=== PATIENT | male | born 1980 | race Caucasian/White ===

== ENCOUNTER 2018-09-08 22:12 | Inpatient (IN) | payer BC, OTHER ==
[~2018-09-08] VITALS: Ht 177.8 cm; Wt 82.6 kg
[2018-09-08] MEDS ORDERED: NS IV 1000 ML 1,000 ML ONE (22:32)
--- NOTE | 2018-09-08 22:35 | NUR ---
Unable to complete safety assessment, because patient is unresponsive
--- NOTE | 2018-09-08 23:06 | ED Psychosocial ---
General Chief Complaint: Overdose Stated Complaint: OVERDOSE Nursing Triage Note: [facility] brought by [facility] with overdose. 18 gauge IV started in left AC. Pt is lethargic and unable to answer questions. Found xanax paper that script was filled yesterday, of 90 .5mg of xanax. Family found him at home around 2044 unresponsive and started CPR, but when [facility] arrived the patient had a pulse. 2115 [facility] gave pt narcan and did not respond. Pt was 96% on non-rebreather. Source: EMS Exam Limitations: clinical condition, intoxication History of Present Illness Date Seen by Provider: Sep 08, 2018 Time Seen by Provider: 22:20 Initial Comments This is a 33 y/o m who presents to the ED after presumed overdose. Pt was last seen approx 2 hrs prior to being found "unresponsive" in his car. Bystanders started CPR but on EMS evaluation pt had good respirations/pulse. He had a prescription bag of Xanax 0.5mg #90 fill date yesterday. No bottle was found on scene. Pt told EMS that he only took #8 tablets. Pt intermittently verbal with repetitive stimuli. He has slurred speech. He is inconsistent when stating how many Xanax he took and also reports ETOH and hydrocodone. He denies any allergies. Allergies and Home Medications Patient Home Medication List Home Medication List Reviewed: Yes Review of Systems Constitutional: no symptoms reported (Unable to obtain 2/2 acuity. ) Past Iazxzkg-Dcaszy-Ilyowh Hx Patient Social History Alcohol Use: Occasionally Uses Recreational Drug Use: No (unknown unresponsive) Smoking Status: Unknown if Ever Smoked Recent Foreign Travel: No Contact w/Someone Who Travel: No Recent Infectious Disease Expo: No Recent Hopitalizations: No (unknown unresponsive) Seasonal Allergies Seasonal Allergies: No (unknown unresponsive) Past Medical History Surgeries: No (unknown unresponsive) Respiratory: No (unknown unresponsive) Cardiac: No (unknown unresponsive) Neurological: No (unknown unresponsive) Genitourinary: No (unknown unresponsive) Gastrointestinal: No (unknown unresponsive) Musculoskeletal: No (unknown unresponsive) Endocrine: No (unknown unresponsive) HEENT: No (unknown unresponsive) Cancer: No (unknown unresponsive) Psychosocial: No (unknown unresponsive) Integumentary: No (unknown unresponsive) Blood Disorders: No (unknown unresponsive) Physical Exam Vital Signs - First Documented 09/08/18 09/08/18 22:35 22:49 Temp 97.4 Pulse 83 Resp 14 B/P (MAP) 100/47 (64) Pulse Ox 94 O2 Delivery Room Air O2 Flow Rate 3.00 Capillary Refill : Less Than 3 Seconds Height, Weight, BMI Height: 5'10.00" Weight: 180lbs. 0oz. 81.591926zg; BMI Method:Stated General Appearance: other (Sleeping, rouses with repetitive verbal/tactile stimmuli. Able to answer questions for 30-60secs and then falls back asleep. ) HEENT: other (Pupils 6-8mm bilateral and sluggishly reactive ) Neck: non-tender, other (No trauma, trachea midline, no stridor ) Respiratory: chest non-tender, lungs clear, normal breath sounds, no respiratory distress, no accessory muscle use Cardiovascular: regular rate, rhythm, no edema, no JVD, no murmur Peripheral Pulses: 2+ Dorsalis Pedis (R), 2+ Left Dors-Pedis (L), 2+ Radial Pulses (R), 2+ Radial Pulses (L) Gastrointestinal: normal bowel sounds, non tender, soft Extremities: no pedal edema, normal capillary refill, other (Moves all 4 extremities spontaneous. Reactive to pain. Tries to pull out IV in L arm. Not able to follow commands to eval ROM. No obvious trauma to extremities ) Neurologic/Psychiatric: other (Sleeping as above. Rouses with repetitive verbal /tactile stimuli. Slurred speech when talking. Alert to self only. Responds to painful stimuli, Attempting to pull out IV. ) Skin: normal color Progress/Results/Core Measures Results/Orders Lab Results Laboratory Tests Test 09/08/18 22:28 Range/Units My Orders Orders - FRENCH WOLF DO Acetaminophen (09/08/18 22:24) Alcohol (09/08/18 22:24) Cbc And Manual Diff (09/08/18 22:24) Comprehensive Metabolic Panel (09/08/18 22:24) Drug Screen Stat (Urine) (09/08/18 22:24) Salicylate (09/08/18 22:24) Ekg Tracing (09/08/18 22:24) Ns Iv 1000 Ml (Sodium Chloride 0.9%) (09/08/18 22:32) Medications Given in ED Current Medications Medications Dose Ordered Sig/Yazan Route Start Time Stop Time Status Last Admin Dose Admin Sodium Chloride 1,000 ml @ ud STK-MED ONCE .ROUTE 09/08/18 22:32 09/08/18 22:35 DC 09/08/18 22:37 999 MLS/HR Vital Signs/I&O 09/08/18 09/08/18 22:35 22:49 Temp 97.4 Pulse 83 Resp 14 B/P (MAP) 100/47 (64) Pulse Ox 94 99 O2 Delivery Room Air Nasal Cannula O2 Flow Rate 3.00 Blood Pressure Mean: 64 Progress Progress Note : Time: 22:53 Progress Note Exact ingestion unclear. Pt could have taken up to Xanax 0.5 #90. Could also be a polypharmacy ingestion. He is rouseable and protecting his airway. When asleep is requiring 2-3 NC supplemental O2. Will require ICU care for potential acute decompensation. Discussed with Dr. FARRELL polymer materials consultant at [facility] who is agreeable to admission. 1L fluid bolus started in ED. BP systolic has been in 90s-100s. EKG with no acute findings. Unclear if this was an SI attempt. Initial ECG Impression Date: Sep 08, 2018 Initial ECG Impression Time: 22:34 Comment NSR, no significant ST segment changes/T wave changes. Departure Impression Primary Impression: Drug overdose Disposition: ADMITTED INPATIENT Condition: Critical Admissions Decision to Admit/Date: Sep 08, 2018 Time/Decision to Admit Time: 22:53 Departure-Patient Inst. Referrals: NO,LOCAL PHYSICIAN (PCP) Primary Care Physician Patient Instructions: ALCOHOL AND SUBSTANCE ABUSE FRENCH WOLF DO Sep 08, 2018 23:06
--- NOTE | 2018-09-08 23:09 | NUR ---
EMS was paged for transportation to [facility] and en route to ER.
--- NOTE | 2018-09-08 23:18 | NUR ---
Report given to EMS and care has been transferred. EMS has left the ER at this time.
[2018-09-08 23:31] LABS: BENZODIAZEPINES SCREEN URINE POSITIVE (NEGATIVE); CANNABINOID SCREEN, URINE POSITIVE (NEGATIVE); COCAINE SCREEN URINE NEGATIVE (NEGATIVE); OXYCODONE STAT POSITIVE (NEGATIVE); PROPOXYPHENE STAT NEGATIVE (NEGATIVE)
[2018-09-08 23:32] LABS: AMPHETAMINE SCREEN, URINE NEGATIVE (NEGATIVE); BARBITURATE SCREEN URINE NEGATIVE (NEGATIVE); METHADONE STAT NEGATIVE (NEGATIVE); METHAMPHETAMINE SCREEN URINE S NEGATIVE (NEGATIVE); OPIATE SCREEN URINE NEGATIVE (NEGATIVE); TRICYCLIC ANTIDEPRESSANTS SCRE NEGATIVE (NEGATIVE); WHITE BLOOD COUNT 8.2 10^3/uL (4.3-11.0)
[2018-09-08 23:33] LABS: BASOPHILS % (AUTO) 0 % (0-10); EOSINOPHILS # (AUTO) 0.1 10^3/uL (0.0-0.3); EOSINOPHILS % (AUTO) 1 % (0-10); HEMATOCRIT 40 % (40-54); LYMPHOCYTES # (AUTO) 1.4 X 10^3 (1.0-4.0); LYMPHOCYTES % (AUTO) 17 % (12-44); MEAN CORPUSCULAR HEMOGLOBIN 32 PG (25-34); MEAN CORPUSCULAR HGB CONC 35 G/DL (32-36); MEAN CORPUSCULAR VOLUME 92 FL (80-99); MEAN PLATELET VOLUME 9.8 FL (7.4-10.4); MONOCYTES # (AUTO) 0.6 X 10^3 (0.0-1.0); MONOCYTES % (AUTO) 8 % (0-12); NEUTROPHILS # (AUTO) 6.1 X 10^3 (1.8-7.8); PLATELET COUNT 165 10^3/uL (130-400); RED CELL DISTRIBUTION WIDTH 12.6 % (10.0-14.5)
[2018-09-08 23:34] LABS: ATYPICAL LYMPHOCYTES 3 %; BAND NEUTROPHILS 4 %; LYMPHOCYTES % (MANUAL) 16 %; MONOCYTES % (MANUAL) 5 %; NEUTROPHILS % (AUTO) 74 % (42-75); NEUTROPHILS % (MANUAL) 72 %
[2018-09-08 23:35] LABS: ACETAMINOPHEN 29 UG/ML (10-30); ALANINE AMINOTRANSFERASE 24 U/L (0-55); ALBUMIN 4.1 GM/DL (3.2-4.5); BILIRUBIN,TOTAL 0.9 MG/DL (0.1-1.0); BUN/CREATININE RATIO 13; CALCIUM 8.5 MG/DL (8.5-10.1); CARBON DIOXIDE 24 MMOL/L (21-32); CHLORIDE 104 MMOL/L (98-107); CREATININE SERUM 0.96 MG/DL (0.60-1.30); GFR ESTIMATED > 60; GLUCOSE 125 MG/DL (70-105); POTASSIUM 4.5 MMOL/L (3.6-5.0); SALICYLATE < 0.3 MG/DL (5.0-20.0); SODIUM 142 MMOL/L (135-145); TOTAL PROTEIN 6.6 GM/DL (6.4-8.2)
[2018-09-08 23:37] LABS: ALKALINE PHOSPHATASE 51 U/L (40-136)
[2018-09-09] VITALS (50 sets, daily range): BP systolic 80–128; BP diastolic 50–93
[2018-09-09] MEDS ORDERED: NS IV 1000 ML 1,000 ML ONE ×3 (00:15→03:40)
[2018-09-09] MEDS ORDERED: NALOXONE 2 MG/2 ML (NARCAN) SYR ONE (00:17)
[2018-09-09 00:37] LABS: ABG BASE EXCESS 0.2 MMOL/L (-2.5-2.5); ABG OXYGEN SATURATION 100 % (94-100); ABG PCO2 38 MMHG (35-45); ABG PH 7.42 (7.37-7.43); ABG PO2 138 MMHG (79-93)
[2018-09-09 00:39] LABS: ALLENS TEST YES-POS; INSPIRED O2 4; PATIENT TEMP 93.9; VENTILATOR NO
[2018-09-09] MEDS ORDERED: NALOXONE 0.4 MG/ML 1 ML (NARCAN) VIAL ONE ×2 (00:40→00:42)
[2018-09-09] MEDS ORDERED: NS (IVPB) 100 ML ONE (00:42)
[2018-09-09] MEDS ORDERED: NALOXONE INJECTION 0.4 MG in NS (IVPB) 99 ML IV PRN (00:45)
[2018-09-09] MEDS: NALOXONE INJECTION 0.4 MG in NS (IVPB) 99 ML IV SCH ×2 (00:54→02:12)
[2018-09-09] MEDS ORDERED: NALOXONE 2 MG/2 ML (NARCAN) SYR IV ONE (01:00)
[2018-09-09] MEDS ORDERED: NALOXONE 0.4 MG/ML 1 ML (NARCAN) VIAL IV ONE (01:00)
--- NOTE | 2018-09-09 01:00 | NUR ---
0003--Pt to [facility] via EMS, per bedside report, EMS report apneic episodes en route, VSS per report, initial VS charted, see EMR 0010--E-ICU contacted, updated on pt condition, discussion of intubation 11--ER physician to bedside 001--1 mg Narcan administered, see eMAR, NS bolus initiated, EKG obtained 001--Pt's LOC increased at this time, not following commands, but moaning and moving all extremities, orders received for Narcan drip, ER physician left 0020--Rectal thermometer placed r/t 93.9 initial temp, see EMR 0030--ABG obtained, see EMR 0040--E-ICU contacted r/t decreased LOC and Narcan drip not available yet, ordered to push Narcan until drip is started at same rate of drip ordered 0100--Narcan drip infusing, pt unresponsive, snoring respirations
--- NOTE | 2018-09-09 01:16 | ED General ---
General Chief Complaint: Overdose Stated Complaint: OVERDOSE Nursing Triage Note: [facility] with overdose. 18 gauge IV started in left AC. Pt is lethargic and unable to answer questions. Found xanax paper that script was filled yesterday, of 90 .5mg of xanax. Family found him at home around 2044 unresponsive and started CPR, but when [facility] arrived the patient had a pulse. 2115 [facility] gave pt narcan and did not respond. Pt was 96% on non-rebreather. Nursing Sepsis Screen: No Definite Risk Source of Information: EMS, Other (Nursing staff) History of Present Illness Date Seen by Provider: September 09, 2018 Time Seen by Provider: 00:15 Initial Comments I was called to patient's room due to respiratory suppression. Respiratory rate was 7 at the time. Intent was for me to intubate the patient. I discussed the case with Dr. Reynoso, [facility] physician. We elected to try Narcan. Patient was initially unresponsive but responded well to 1 mg of Narcan. He has spontaneous movements and increased his respiratory rate to 20. ST elevation was noted on the monitor. An EKG was obtained which showed no ST elevation. Intubation was avoided for the time being. Allergies and Home Medications Allergies Coded Allergies: No Known Drug Allergies (Unverified , 09/09/18) Patient Home Medication List Home Medication List Reviewed: Yes Review of Systems Review of Systems Constitutional: no symptoms reported Respiratory: see HPI Psychiatric/Neurological: See HPI Past Ctgxfww-Mmvupb-Dybtvh Hx Patient Social History Alcohol Use: Occasionally Uses Recreational Drug Use: No (unknown unresponsive) Smoking Status: Unknown if Ever Smoked Recent Foreign Travel: No Contact w/Someone Who Travel: No Recent Infectious Disease Expo: No Recent Hopitalizations: No (unknown unresponsive) Seasonal Allergies Seasonal Allergies: No (unknown unresponsive) Past Medical History Surgeries: No (unknown unresponsive) Respiratory: No (unknown unresponsive) Cardiac: No (unknown unresponsive) Neurological: No (unknown unresponsive) Genitourinary: No (unknown unresponsive) Gastrointestinal: No (unknown unresponsive) Musculoskeletal: No (unknown unresponsive) Endocrine: No (unknown unresponsive) HEENT: No (unknown unresponsive) Cancer: No (unknown unresponsive) Psychosocial: No (unknown unresponsive) Integumentary: No (unknown unresponsive) Blood Disorders: No (unknown unresponsive) Physical Exam Vital Signs Vital Signs - First Documented 09/08/18 09/08/18 22:35 22:49 Temp 97.4 Pulse 83 Resp 14 B/P (MAP) 100/47 (64) Pulse Ox 94 O2 Delivery Room Air O2 Flow Rate 3.00 Capillary Refill : Less Than 3 Seconds Height, Weight, BMI Height: 5'10.00" Weight: 180lbs. 0oz. 81.499673px; BMI Method:Stated General Appearance: No Apparent Distress, Other (unresponsive) HEENT: Other (subtle abrasion on the central scalp) Neck: Normal Inspection Respiratory: No Respiratory Distress Neurologic/Psychiatric: Other (initially unresponsive. Patient exhibited response to verbal stimuli and exhibited spontaneous movement after treatment with Narcan) Skin: Normal Color, Warm/Dry Progress/Results/Core Measures Suspected Sepsis Recent Fever Within 48 Hours: No Infection Criteria Present: None New/Unexplained Altered Menta: No Sepsis Screen: No Definite Risk SIRS Temperature:93.9 Pulse: 60 Respiratory Rate: 6 Laboratory Tests 09/08/18 22:28: White Blood Count 8.2 Blood Pressure 87 /62 Mean: 70 Laboratory Tests 09/08/18 22:28: Creatinine 0.96, Platelet Count 165, Total Bilirubin 0.9 Results/Orders Lab Results Laboratory Tests Test 09/08/18 22:28 09/09/18 00:30 Range/Units White Blood Count 8.2 4.3-11.0 10^3/uL Red Blood Count 4.36 4.35-5.85 10^6/uL Hemoglobin 14.0 13.3-17.7 G/DL Hematocrit 40 40-54 % Mean Corpuscular Volume 92 80-99 FL Mean Corpuscular Hemoglobin 32 25-34 PG Mean Corpuscular Hemoglobin Concent 35 32-36 G/DL Red Cell Distribution Width 12.6 10.0-14.5 % Platelet Count 165 130-400 10^3/uL Mean Platelet Volume 9.8 7.4-10.4 FL Neutrophils (%) (Auto) 74 42-75 % Lymphocytes (%) (Auto) 17 12-44 % Monocytes (%) (Auto) 8 0-12 % Eosinophils (%) (Auto) 1 0-10 % Basophils (%) (Auto) 0 0-10 % Neutrophils # (Auto) 6.1 1.8-7.8 X 10^3 Lymphocytes # (Auto) 1.4 1.0-4.0 X 10^3 Monocytes # (Auto) 0.6 0.0-1.0 X 10^3 Eosinophils # (Auto) 0.1 0.0-0.3 10^3/uL Basophils # (Auto) 0.0 0.0-0.1 10^3/uL Neutrophils % (Manual) 72 % Lymphocytes % (Manual) 16 % Monocytes % (Manual) 5 % Band Neutrophils 4 % Atypical Lymphocytes 3 % Sodium Level 142 135-145 MMOL/L Potassium Level 4.5 3.6-5.0 MMOL/L Chloride Level 104 98-107 MMOL/L Carbon Dioxide Level 24 21-32 MMOL/L Anion Gap 14 5-14 MMOL/L Blood Urea Nitrogen 12 7-18 MG/DL Creatinine 0.96 0.60-1.30 MG/DL Estimat Glomerular Filtration Rate > 60 BUN/Creatinine Ratio 13 Glucose Level 125 H 70-105 MG/DL Calcium Level 8.5 8.5-10.1 MG/DL Corrected Calcium 8.4 L 8.5-10.1 MG/DL Total Bilirubin 0.9 0.1-1.0 MG/DL Aspartate Amino Transf (AST/SGOT) 22 5-34 U/L Alanine Aminotransferase (ALT/SGPT) 24 0-55 U/L Alkaline Phosphatase 51 40-136 U/L Total Protein 6.6 6.4-8.2 GM/DL Albumin 4.1 3.2-4.5 GM/DL Salicylates Level < 0.3 L 5.0-20.0 MG/DL Urine Opiates Screen NEGATIVE NEGATIVE Urine Oxycodone Screen POSITIVE H NEGATIVE Urine Methadone Screen NEGATIVE NEGATIVE Urine Propoxyphene Screen NEGATIVE NEGATIVE Acetaminophen Level 29 10-30 UG/ML Urine Barbiturates Screen NEGATIVE NEGATIVE Ur Tricyclic Antidepressants Screen NEGATIVE NEGATIVE Urine Phencyclidine Screen NEGATIVE NEGATIVE Urine Amphetamines Screen NEGATIVE NEGATIVE Urine Methamphetamines Screen NEGATIVE NEGATIVE Urine Benzodiazepines Screen POSITIVE H NEGATIVE Urine Cocaine Screen NEGATIVE NEGATIVE Urine Cannabinoids Screen POSITIVE H NEGATIVE Serum Alcohol 10 <10 MG/DL Blood Gas Puncture Site LT RAD Blood Gas Patient Temperature 93.9 Arterial Blood pH 7.42 7.37-7.43 Arterial Blood Partial Pressure CO2 38 35-45 MMHG Arterial Blood Partial Pressure O2 138 H 79-93 MMHG Arterial Blood HCO3 25 23-27 MMOL/L Arterial Blood Total CO2 26.0 21.0-31.0 MMOL/L Arterial Blood Oxygen Saturation 100 94-100 % Arterial Blood Base Excess 0.2 -2.5-2.5 MMOL/L Torito Test YES-POS Blood Gas Ventilator Setting NO Blood Gas Inspired Oxygen 4 Medications Given in ED Current Medications Medications Dose Ordered Sig/Yazan Route Start Time Stop Time Status Last Admin Dose Admin Sodium Chloride 1,000 ml @ ud STK-MED ONCE .ROUTE 09/08/18 22:32 09/08/18 22:35 DC 09/08/18 22:37 999 MLS/HR Vital Signs/I&O 09/08/18 09/08/18 09/08/18 09/09/18 22:35 22:49 23:24 00:06 Temp 97.4 97.0 93.9 Pulse 83 78 60 Resp 14 13 6 B/P (MAP) 100/47 (64) 97/57 (70) 87/62 (70) Pulse Ox 94 99 100 99 O2 Delivery Room Air Nasal Cannula Room Air Nasal Cannula O2 Flow Rate 3.00 3.00 4.00 09/09/18 00:35 O2 Delivery Nasal Cannula O2 Flow Rate 2.00 Capillary Refill : Less Than 3 Seconds Blood Pressure Mean: 70 Progress Note : Progress Note Patient improved with Narcan. Care was turned over to Dr. Reynoso. ECG Initial ECG Impression Date: September 09, 2018 Initial ECG Impression Time: 00:20 Initial ECG Rate: 64 Initial ECG Rhythm: Normal Sinus Comment Sinus rhythm with no ST elevation or depression. LVH noted by automated read. No significant abnormal intervals. Departure Impression Primary Impression: Drug overdose Qualified Codes: T50.904A - Poisoning by unspecified drugs, medicaments and biological substances, undetermined, initial encounter Additional Impression: Respiratory depression Disposition: 09 ADMITTED INPATIENT Condition: Critical Admissions Decision to Admit/Date: Sep 08, 2018 Time/Decision to Admit Time: 22:53 Departure-Patient Inst. Referrals: NO,LOCAL PHYSICIAN (PCP) Primary Care Physician Patient Instructions: ALCOHOL AND SUBSTANCE ABUSE ALESHA ARORA MD September 09, 2018 01:16
--- NOTE | 2018-09-09 01:16 | NUR ---
Poison Control notified of pt's condition, Poison Control will follow up, protocols for ingestion received via fax at this time.
[2018-09-09] MEDS ORDERED: RT-ALBUTEROL SULF 2.5 MG/3 ML PRE-MIX VIAL ONE (02:13)
[2018-09-09 02:15] LABS: ABG BASE EXCESS -0.7 MMOL/L (-2.5-2.5); ABG OXYGEN SATURATION 95 % (94-100); ABG PCO2 59 MMHG (35-45); ABG PO2 74 MMHG (79-93); ABG TCO2 27.8 MMOL/L (21.0-31.0)
[2018-09-09] MEDS ORDERED: RT-ALBUTEROL SULF 2.5 MG/3 ML PRE-MIX VIAL INH PRN (02:15)
[2018-09-09 02:17] LABS: ABG PH 7.25 (7.37-7.43); INSPIRED O2 2L NC; VENTILATOR NO
[2018-09-09 02:18] LABS: PATIENT TEMP 96.1
[2018-09-09] MEDS ORDERED: PROPOFOL DRIP (ICU) 100 ML IV ONE (02:52)
[2018-09-09] MEDS ORDERED: PROPOFOL DRIP (ICU) 100 ML IV SCH (03:00)
[2018-09-09] MEDS ORDERED: SUCCINYLCHOLINE INJ 100 MG/5 ML SYR INJ ONE ×2 (03:00→12:32)
[2018-09-09] MEDS ORDERED: ETOMIDATE IV SOLN 20 MG/10 ML VIAL IV ONE ×2 (03:00→12:32)
--- NOTE | 2018-09-09 03:00 | NUR ---
0145--Pt continues to be unresponsive, ETC02 steadily climbing, in 60s at this time 0150--Oral airway attempted, pt continues to snore, nasal trumpet initiated, no gag reflex noted at this time, pt continues with unresponsiveness to deep painful stimuli, respirations 4-6 per minute 0210--ABG obtained 0218--Critical pH level received 0220--E-ICU contacted, updated on pt's condition, orders for intubation received, Concert [employer] notified, ER physician called 0230--ER physician to bedside 0245--RSI medications given per ER physician, see EMAR 0247--Successful intubation at this time, 7.5 ET tube, 23@teeth, color change, bilateral breath sounds auscultated 0250--OG placed, CXR obtained, placement confirmed 0252--Narcan drip d/c at this time
--- NOTE | 2018-09-09 03:07 | ED CPR ---
HPI-CPR General Chief Complaint: Overdose Stated Complaint: OVERDOSE Nursing Triage Note: [facility] with overdose. 18 gauge IV started in left AC. Pt is lethargic and unable to answer questions. Found xanax paper that script was filled yesterday, of 90 .5mg of xanax. Family found him at home around 2044 unresponsive and started CPR, but when [facility] arrived the patient had a pulse. 2115 [facility] gave pt narcan and did not respond. Pt was 96% on non-rebreather. Sepsis Screen: No Definite Risk Source of Information: Patient, Old Records Exam Limitations: No Limitations History of Present Illness Date Seen by Provider: September 09, 2018 Time Seen by Provider: 02:35 Initial Comments I was called to patient's room for intubation. Patient was again unresponsive despite a Narcan drip. Patient's respirations were obstructive. Nasal trumpet was not sufficient to protect his airway. His respirations were being supplemented by BVM. ABG was worsening. Allergies and Home Medications Allergies Coded Allergies: No Known Drug Allergies (Unverified , 09/09/18) Home Medications Alprazolam 0.5 Mg Tablet, 0.5 MG PO TID PRN for ANXIETY, (Reported) Patient Home Medication List Home Medication List Reviewed: Yes Review of Systems Review of Systems Constitutional: no symptoms reported Respiratory: See HPI Psychiatric/Neurological: See HPI Past Fbxxnod-Ivcidq-Cwamqa Hx Patient Social History Alcohol Use: Occasionally Uses Recreational Drug Use: No (unknown unresponsive) Smoking Status: Unknown if Ever Smoked Recent Foreign Travel: No Contact w/Someone Who Travel: No Recent Infectious Disease Expo: No Recent Hopitalizations: No (unknown unresponsive) Seasonal Allergies Seasonal Allergies: No (unknown unresponsive) Past Medical History Surgeries: No (unknown unresponsive) Respiratory: No (unknown unresponsive) Cardiac: No (unknown unresponsive) Neurological: No (unknown unresponsive) Genitourinary: No (unknown unresponsive) Gastrointestinal: No (unknown unresponsive) Musculoskeletal: No (unknown unresponsive) Endocrine: No (unknown unresponsive) HEENT: No (unknown unresponsive) Cancer: No (unknown unresponsive) Psychosocial: No (unknown unresponsive) Integumentary: No (unknown unresponsive) Blood Disorders: No (unknown unresponsive) Physical Exam Vital Signs Vital Signs - First Documented 09/08/18 09/08/18 22:35 22:49 Temp 97.4 Pulse 83 Resp 14 B/P (MAP) 100/47 (64) Pulse Ox 94 O2 Delivery Room Air O2 Flow Rate 3.00 Capillary Refill : Less Than 3 Seconds Height, Weight, BMI Height: 5'10.00" Weight: 158lbs. 0.0oz. 71.629321hy; 22.7 BMI Method:Stated General Appearance: WD/WN, Other (unresponsive) HEENT: Other (minor abrasion on the top of the scalp) Neck: Normal Inspection Respiratory: Lungs Clear, Normal Breath Sounds, No Accessory Muscle Use, No Respiratory Distress, Other (obstructive respirations) Cardiovascular: Regular Rate, Rhythm, No Edema, No Murmur Gastrointestinal: Soft; No Distended Extremity: Normal Inspection, No Pedal Edema Neurologic/Psychiatric: Other (unresponsive) Skin: Normal Color, Diaphoresis Procedures/Interventions Reason for Intubation: respiratory depression, obstructive airway Date of ETT Placement: September 09, 2018 Time of ETT Placement: 246 Intubation Method: orotracheal Tube Size: 8.00 Medications: Etomidate, Propofol, Succinylcholine Positive End Tide CO2: Yes Breath Sounds after Intubation: bilateral-equal Intubation Complications: no complications Post Intubation Xray: Yes ET tube in good position. No pneumothorax. Intubation performed by Dr. Bernabe Care turned over to: Dr. Reynoso. Progress/Results/Core Measures Results/Orders Lab Results Laboratory Tests Test 09/08/18 22:28 Range/Units White Blood Count 8.2 4.3-11.0 10^3/uL Red Blood Count 4.36 4.35-5.85 10^6/uL Hemoglobin 14.0 13.3-17.7 G/DL Hematocrit 40 40-54 % Mean Corpuscular Volume 92 80-99 FL Mean Corpuscular Hemoglobin 32 25-34 PG Mean Corpuscular Hemoglobin Concent 35 32-36 G/DL Red Cell Distribution Width 12.6 10.0-14.5 % Platelet Count 165 130-400 10^3/uL Mean Platelet Volume 9.8 7.4-10.4 FL Neutrophils (%) (Auto) 74 42-75 % Lymphocytes (%) (Auto) 17 12-44 % Monocytes (%) (Auto) 8 0-12 % Eosinophils (%) (Auto) 1 0-10 % Basophils (%) (Auto) 0 0-10 % Neutrophils # (Auto) 6.1 1.8-7.8 X 10^3 Lymphocytes # (Auto) 1.4 1.0-4.0 X 10^3 Monocytes # (Auto) 0.6 0.0-1.0 X 10^3 Eosinophils # (Auto) 0.1 0.0-0.3 10^3/uL Basophils # (Auto) 0.0 0.0-0.1 10^3/uL Neutrophils % (Manual) 72 % Lymphocytes % (Manual) 16 % Monocytes % (Manual) 5 % Band Neutrophils 4 % Atypical Lymphocytes 3 % Sodium Level 142 135-145 MMOL/L Potassium Level 4.5 3.6-5.0 MMOL/L Chloride Level 104 98-107 MMOL/L Carbon Dioxide Level 24 21-32 MMOL/L Anion Gap 14 5-14 MMOL/L Blood Urea Nitrogen 12 7-18 MG/DL Creatinine 0.96 0.60-1.30 MG/DL Estimat Glomerular Filtration Rate > 60 BUN/Creatinine Ratio 13 Glucose Level 125 H 70-105 MG/DL Calcium Level 8.5 8.5-10.1 MG/DL Corrected Calcium 8.4 L 8.5-10.1 MG/DL Total Bilirubin 0.9 0.1-1.0 MG/DL Aspartate Amino Transf (AST/SGOT) 22 5-34 U/L Alanine Aminotransferase (ALT/SGPT) 24 0-55 U/L Alkaline Phosphatase 51 40-136 U/L Total Protein 6.6 6.4-8.2 GM/DL Albumin 4.1 3.2-4.5 GM/DL Salicylates Level < 0.3 L 5.0-20.0 MG/DL Urine Opiates Screen NEGATIVE NEGATIVE Urine Oxycodone Screen POSITIVE H NEGATIVE Urine Methadone Screen NEGATIVE NEGATIVE Urine Propoxyphene Screen NEGATIVE NEGATIVE Acetaminophen Level 29 10-30 UG/ML Urine Barbiturates Screen NEGATIVE NEGATIVE Ur Tricyclic Antidepressants Screen NEGATIVE NEGATIVE Urine Phencyclidine Screen NEGATIVE NEGATIVE Urine Amphetamines Screen NEGATIVE NEGATIVE Urine Methamphetamines Screen NEGATIVE NEGATIVE Urine Benzodiazepines Screen POSITIVE H NEGATIVE Urine Cocaine Screen NEGATIVE NEGATIVE Urine Cannabinoids Screen POSITIVE H NEGATIVE Serum Alcohol 10 <10 MG/DL Medications Given in ED Vital Signs/I&O 09/08/18 09/08/18 22:35 22:49 Temp 97.4 Pulse 83 Resp 14 B/P (MAP) 100/47 (64) Pulse Ox 94 99 O2 Delivery Room Air Nasal Cannula O2 Flow Rate 3.00 Blood Pressure Mean: 71 Progress Progress Note : Progress Note Patient was successfully intubated without complications. I have also ordered CT of the head and cervical spine as patient's history surrounding events prior to arrival in [place] are uncertain and there is evidence of a subtle abrasion on his scalp. Nursing staff will have results reviewed by Dr. Reynoso. Departure Impression Primary Impression: Drug overdose Qualified Codes: T50.904A - Poisoning by unspecified drugs, medicaments and biological substances, undetermined, initial encounter Additional Impression: Respiratory depression Disposition: ADMITTED INPATIENT Condition: Critical Admissions Decision to Admit/Date: Sep 08, 2018 Time/Decision to Admit Time: 22:53 Departure-Patient Inst. Referrals: NO,LOCAL PHYSICIAN (PCP) Primary Care Physician Patient Instructions: ALCOHOL AND SUBSTANCE ABUSE ALESHA BERNABE MD September 09, 2018 03:07
[2018-09-09 03:11] LABS: BASOPHILS % (AUTO) 0 % (0-10); EOSINOPHILS % (AUTO) 0 % (0-10); HEMATOCRIT 38 % (40-54); HEMOGLOBIN 13.2 G/DL (13.3-17.7); LYMPHOCYTES # (AUTO) 2.6 X 10^3 (1.0-4.0); LYMPHOCYTES % (AUTO) 28 % (12-44); MEAN CORPUSCULAR HEMOGLOBIN 32 PG (25-34); MEAN CORPUSCULAR HGB CONC 35 G/DL (32-36); MEAN CORPUSCULAR VOLUME 91 FL (80-99); MEAN PLATELET VOLUME 9.3 FL (7.4-10.4); MONOCYTES # (AUTO) 0.7 X 10^3 (0.0-1.0); MONOCYTES % (AUTO) 8 % (0-12); NEUTROPHILS % (AUTO) 64 % (42-75); PLATELET COUNT 188 10^3/uL (130-400); RED CELL DISTRIBUTION WIDTH 12.5 % (10.0-14.5); WHITE BLOOD COUNT 9.3 10^3/uL (4.3-11.0)
[2018-09-09 03:33] LABS: ACETAMINOPHEN 25 UG/ML (10-30); ALANINE AMINOTRANSFERASE 22 U/L (0-55); ALBUMIN 3.5 GM/DL (3.2-4.5); ALKALINE PHOSPHATASE 44 U/L (40-136); BILIRUBIN,TOTAL 0.9 MG/DL (0.1-1.0); BUN/CREATININE RATIO 11; CALCIUM 8.1 MG/DL (8.5-10.1); CARBON DIOXIDE 18 MMOL/L (21-32); CHLORIDE 113 MMOL/L (98-107); CREATININE SERUM 0.81 MG/DL (0.60-1.30); GFR ESTIMATED > 60; GLUCOSE 101 MG/DL (70-105); MAGNESIUM 2.1 MG/DL (1.8-2.4); PHOSPHORUS 5.1 MG/DL (2.3-4.7); POTASSIUM 4.7 MMOL/L (3.6-5.0); SODIUM 142 MMOL/L (135-145); TOTAL PROTEIN 5.5 GM/DL (6.4-8.2); TRIGLYCERIDES 63 MG/DL (<150)
[2018-09-09] MEDS: NS IV 1000 ML 1,000 ML IV SCH ×3 (03:40→17:58)
[2018-09-09 04:22] LABS: ABG BASE EXCESS -1.9 MMOL/L (-2.5-2.5); ABG OXYGEN SATURATION 100 % (94-100); ABG PCO2 30 MMHG (35-45); ABG PH 7.46 (7.37-7.43); ABG PO2 141 MMHG (79-93); ABG TCO2 22.5 MMOL/L (21.0-31.0)
[2018-09-09 04:23] LABS: ALLENS TEST YES-POS; INSPIRED O2 40%; PATIENT TEMP 96.9; VENTILATOR YES
[2018-09-09] MEDS ORDERED: NS IV 1000 ML 1,000 ML IV SCH (04:30)
[2018-09-09] MEDS ORDERED: fentaNYL INJECTION 100 MCG/2 ML AMP IV PRN (04:30)
--- NOTE | 2018-09-09 04:49 | NUR ---
0427--Pt to CT with RT, Manager Fund RN, and restorative care technician, with monitors. 2789--Pt returned without complications
--- NOTE | 2018-09-09 05:11 | Pulmonary Consultation ---
History of Present Illness History of Present Illness Date of Consultation 09/09/18 05:04 Time Seen by Provider: 05:04 Date of Admission History of Present Illness 33yo presented to ED via EMS after family called EMS secondary to unresponsiveness. Upon EMS arrival pt's family was doing chest compression however EMS palpated a pulse. Upon arrival patient did respond to Narcan however pt became unresponsive again and was not able to control his airway. Allergies and Home Medications Allergies Coded Allergies: No Known Drug Allergies (Unverified , 09/09/18) Home Medications No Active Prescriptions or Reported Meds Past Vzulsdc-Gzwqmx-Apwafy Hx Patient Social History Alcohol Use: Occasionally Uses Recreational Drug Use: No (unknown unresponsive) Smoking Status: Unknown if Ever Smoked Recent Foreign Travel: No Contact w/Someone Who Travel: No Recent Infectious Disease Expo: No Recent Hopitalizations: No (unknown unresponsive) Seasonal Allergies Seasonal Allergies: No (unknown unresponsive) Past Medical History Surgeries: No (unknown unresponsive) Respiratory: No (unknown unresponsive) Cardiac: No (unknown unresponsive) Neurological: No (unknown unresponsive) Genitourinary: No (unknown unresponsive) Gastrointestinal: No (unknown unresponsive) Musculoskeletal: No (unknown unresponsive) Endocrine: No (unknown unresponsive) HEENT: No (unknown unresponsive) Cancer: No (unknown unresponsive) Psychosocial: No (unknown unresponsive) Integumentary: No (unknown unresponsive) Blood Disorders: No (unknown unresponsive) Review of Systems Time Seen by Provider: 11:39 Sepsis Event Evaluation Height, Weight, BMI Height: 5'10.00" Weight: 158lbs. 0.0oz. 71.343917hx; 22.7 BMI Method:Stated Exam Exam Vital Signs Date Time Temp Pulse Resp B/P (MAP) Pulse Ox O2 Delivery O2 Flow Rate FiO2 09/09/18 04:00 98.2 75 16 104/75 (85) 100 Mechanical Ventilator 40.00 09/09/18 03:30 98.0 78 15 99/65 (76) 99 Mechanical Ventilator 40.00 09/09/18 03:01 Mechanical Ventilator 60.00 09/09/18 03:00 97.8 102 50 119/81 (94) 100 Mechanical Ventilator 60.00 09/09/18 02:47 90 16 100 60 09/09/18 02:40 97.2 86 11 119/81 (94) 99 Mechanical Ventilator 60.00 09/09/18 02:17 98 Nasal Cannula 2.00 09/09/18 02:00 95.8 86 9 107/53 (71) 90 Nasal Cannula 2.00 09/09/18 01:49 87 94 09/09/18 01:49 93 Nasal Cannula 2.00 09/09/18 01:45 95.2 92 113/50 (71) 98 Nasal Cannula 2.00 09/09/18 01:30 94.8 81 10 101/57 (72) 97 Nasal Cannula 2.00 09/09/18 01:15 94.5 75 10 95/55 (68) 95 Nasal Cannula 2.00 09/09/18 01:00 94.1 64 13 90/55 (67) 97 Nasal Cannula 2.00 09/09/18 01:00 64 09/09/18 00:45 94.3 63 11 89/61 (70) 98 Nasal Cannula 2.00 09/09/18 00:35 Nasal Cannula 2.00 09/09/18 00:30 68 9 106/78 (87) 95 Nasal Cannula 4.00 09/09/18 00:15 61 13 80/63 (69) 100 Nasal Cannula 4.00 09/09/18 00:10 74 09/09/18 00:06 93.9 60 6 87/62 (70) 99 Nasal Cannula 4.00 09/08/18 23:24 97.0 78 13 97/57 (70) 100 Room Air 3.00 09/08/18 22:49 99 Nasal Cannula 3.00 09/08/18 22:35 97.4 83 14 100/47 (64) 94 Room Air I & O 09/09/18 06:59 Intake Total 100 ml Output Total 675 ml Balance -575 ml Height & Weight Height: 5'10.00" Weight: 158lbs. 0.0oz. 71.107295ud; 22.7 BMI Method:Stated General Appearance: WD/WN, Other (unresponsive) HEENT: Other (minor abrasion on the top of the scalp) Neck: Normal Inspection Respiratory: Lungs Clear, Normal Breath Sounds, No Accessory Muscle Use, No Respiratory Distress, Other (obstructive respirations) Cardiovascular: Regular Rate, Rhythm, No Edema, No Murmur Capillary Refill: Less Than 3 Seconds Peripheral Pulses: 2+ Dorsalis Pedis (R), 2+ Left Dors-Pedis (L), 2+ Radial Pulses (R), 2+ Radial Pulses (L) Gastrointestinal: normal bowel sounds, non tender, soft Extremity: Normal Inspection, No Pedal Edema Neurologic/Psychiatric: Other (unresponsive) Skin: Normal Color, Diaphoresis Results Lab Laboratory Tests 09/08/18 22:28 09/09/18 03:03 Assessment/Plan Assessment/Plan Acute respiratory failure -Continue ventilator therapy -D/C sedation and will allow pt to wake up on vent Multisubstance OD narcotics and benzo's -Will follow mucomyst PO protocol per poison control Marijuana use -education DARRIN PATEL DO September 09, 2018 05:11
[2018-09-09] MEDS: RT-ALBUTEROL SULF 2.5 MG/3 ML PRE-MIX VIAL INH SCH ×2 (06:03→10:33)
[2018-09-09] MEDS: MAGNESIUM 1 GM/100 ML IVPB 100 ML IV SCH (06:11)
[2018-09-09] MEDS: POTASSIUM CL 10MEQ/50ML IVPB 50 ML IV SCH (06:11)
[2018-09-09] MEDS: KCL 20 MEQ TAB (K-DUR) PO SCH (06:12)
--- NOTE | 2018-09-09 06:12 | Diagnostic Imaging Report ---
PROCEDURE: CT head and CT cervical spine without contrast. TECHNIQUE: Multiple contiguous axial images were obtained through the brain and cervical spine without the use of intravenous contrast. Sagittal and coronal reformations through the cervical spine were then performed. Auto Exposure Controls were utilized during the CT exam to meet ALARA standards for radiation dose reduction. INDICATION: 33-year-old male with benzodiazepine overdose on a ventilator. COMPARISON: None CT head without contrast: FINDINGS: Midline structures are not displaced. Lateral, third and fourth ventricles are normal in size, shape and anatomic position. There is no mass, mass effect, hydrocephalus or hemorrhage. Khan-white differentiation is normal. There is no sulcal effacement. There are no abnormal extra-axial fluid collections or hemorrhage. Basilar cisterns appear normal. Sinuses, orbits and mastoid air cells are normal. Bone windows show no calvarial changes. IMPRESSION: Unremarkable nonenhanced CT brain. CT cervical spine with reconstructions: FINDINGS: Axial images and sagittal and coronal reconstructions of the cervical spine show no evidence of new or healing fractures, bony destruction or remodeling. The cervical vertebral bodies appear well aligned, vertebral body heights appear well-maintained. There is some mild cervical spondylosis. Prevertebral soft tissue as well as a predental space and the relationship of the dens to lateral mass of C1 is normal. Patient is intubated. Lung apices are clear. Superior mediastinum is unremarkable. Parapharyngeal and paraspinous soft tissues are normal. IMPRESSION: 1. Patient is intubated. 2. Mild cervical spondylosis of mid cervical spine otherwise no evidence of acute fracture or subluxation seen. Agree with [facility] report. Dictated by: Dictated on workstation # [id number]
[2018-09-09] MEDS ORDERED: D5W IV ONE ×3 (06:30→11:30)
[2018-09-09] MEDS ORDERED: ACETYLCYSTEINE IV ONE ×3 (06:30→11:30)
--- NOTE | 2018-09-09 07:57 | Diagnostic Imaging Report ---
INDICATION: Support apparatus placement FINDINGS: ET tube tip mid trachea. OG catheter in the stomach. No focal pulmonary consolidation. No effusion or pneumothorax. IMPRESSION: Support apparatus projects in good alignment, the lungs are clear. Dictated by: Dictated on workstation # [id number]
[2018-09-09] MEDS ORDERED: PANTOPRAZOLE 40 MG (PROTONIX) VIAL IV SCH (08:00)
[2018-09-09] MEDS: CHLORHEXIDINE 0.12% SOLN 15 ML (PERIDEX) UDC PO SCH ×2 (10:30→21:00)
[2018-09-09] MEDS ORDERED: ALPR0.5T7 PO (10:31)
--- NOTE | 2018-09-09 10:48 | NUR ---
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 I CALLED BENEDICT KAUFMAN, WHO PRESCRIBED THE XANAX, AT [facility] IN [facility] PHONE [phone]. THEY FAXED OVER THE RECORDS THEY HAVE ON FILE FOR THE PATIENT. IN THAT PAPER WORK IS A MED LIST THAT HAS THE FOLLOWING MEDS LISTED: PERCOCET 10-325 Q4H KETOCONAZOLE CREAM BID ALPRAZOLAM .25MG Q8H OMEPRAZOLE 40MG DAILY ALBUTEROL INHALER PRN ACCORDING TO [employer] THE PERCOCET HAS NOT BEEN FILLED SINE 03-17-18 FOR #42 AND THE XANAX THAT WAS RECENTLY FILLED WAS 0.5MG NOT THE 0.25MG SO IT IS UNCLEAR HOW UP TO DATE THIS LIST IT. THERE IS NO DATE ON IT EITHER. I DID NOT PUT THE OTHER MEDICATIONS ON THE MED REC AT THIS TIME SINCE I AM NOT ABLE TO VERIFY WHEN THEY WERE FILLED LAST AND IT IS UNCLEAR IF THE PATIENT IS TAKING THEM.
--- NOTE | 2018-09-09 10:53 | History & Physical-Hospitalist ---
History of Present Illness HPI/Chief Complaint CC: Overdose with VDRF HPI: This is a 38-year-old white male who is brought to the ER from paramedics after the family called due to unresponsiveness. Family was performing chest compressions at the time of arrival of the paramedics and they assessed the patient have a pulse that he was no longer able to maintain his airway so he was intubated in the field. Currently patient is stable now vent dependent and Dr. Atkinson has been consulted. No family at the bedside for other details. Source: patient Exam Limitations: no limitations Date Seen 09/09/18 Time Seen by a Provider: 09:45 Attending Physician Pedro Lozano MD PCP No,Local Physician Referring Physician Date of Admission Sep 08, 2018 at 22:59 Home Medications & Allergies Home Medications Reviewed patient Home Medication Reconciliation performed by pharmacy medication reconciliations robotic technician and/or nursing. Patients Allergies have been reviewed. Allergies Allergies Coded Allergies No Known Drug Allergies (Unverified09/09/18) Past Scifixl-Dwgesf-Sgwljg Hx Past Med/Social Hx: Reviewed Nursing Past Med/Soc Hx, Reviewed and Corrections made Patient Social History Alcohol Use: Occasionally Uses Recreational Drug Use: No (unknown unresponsive) Smoking Status: Unknown if Ever Smoked Recent Foreign Travel: No Contact w/other who traveled: No Recent Hopitalizations: No (unknown unresponsive) Recent Infectious Disease Expo: No Seasonal Allergies Seasonal Allergies: No (unknown unresponsive) Past Medical History History of Blood Disorders: No (unknown unresponsive) Review of Systems Constitutional: see HPI (unable to ascertain) Physical Exam Physical Exam Vital Signs Vital Signs - First Documented 09/08/18 09/08/18 09/09/18 22:35 22:49 02:47 Temp 97.4 Pulse 83 Resp 14 B/P (MAP) 100/47 (64) Pulse Ox 94 O2 Delivery Room Air O2 Flow Rate 3.00 FiO2 60 Capillary Refill : Less Than 3 Seconds Height, Weight, BMI Height: 5'10.00" Weight: 158lbs. 8.0oz. 71.139047gt; 22.7 BMI Method:Stated General Appearance: No Apparent Distress, Other (sedated on vent) Respiratory: Lungs Clear, Normal Breath Sounds, Other (on vent) Cardiovascular: Regular Rate, Rhythm, No Edema Neurologic/Psychiatric: Other (sedated) Results Results/Procedures Labs Laboratory Tests 09/08/18 22:28 09/09/18 03:03 Patient resulted labs reviewed. Assessment/Plan Admission Diagnosis Assessment: Overdose Respiratory failure VDRF Plan: Maintain vent Appreciate Dr Atkinson Admission Status: Inpatient Order (span 2 midnights) Reason for Inpatient Admission: VDRF will require 3 days Diagnosis/Problems Diagnosis/Problems (1) Ventilator dependence Status: Acute (2) Respiratory failure Status: Acute Qualifiers: Chronicity: unspecified Respiratory failure complication: unspecified whether with hypoxia or hypercapnia Qualified Codes: J96.90 - Respiratory failure, unspecified, unspecified whether with hypoxia or hypercapnia (3) Drug overdose Status: Acute Qualifiers: Encounter type: initial encounter Injury intent: undetermined intent Qualified Codes: T50.904A - Poisoning by unspecified drugs, medicaments and biological substances, undetermined, initial encounter ELAN COUGHLIN DO September 09, 2018 10:53
--- NOTE | 2018-09-09 13:11 | NUR ---
DR. PATEL CALLED TO ROOM AT APPROX 1300, PATIENT THRASHING AROUND, SITTING UP IN BED, ET MOUTHED TO FATHER HELP ME. DR. PATEL ASSESSED PATIENT ET MADE DECISION TO HAVE PT EXTUBATED. RT CALLED TO ROOM, PATIENT EXTUBATED AT 1305, RESTRAINTS REMOVED AT THIS TIME. PATIENT SUCTIONED ET O2 APPLED VIA NASAL CANNULA 2L/
[2018-09-09] MEDS ORDERED: KETOROLAC 15 MG/ML VIAL IVP PRN (13:30)
[2018-09-09] MEDS ORDERED: KETOROLAC 15 MG/ML VIAL ONE (13:38)
[2018-09-09] MEDS: RT-ALBUTEROL/IPRATROPIUM 3 ML (DUONEB) VIAL INH SCH ×3 (14:41→22:28)
[2018-09-09] MEDS ORDERED: RT-ALBUTEROL/IPRATROPIUM 3 ML (DUONEB) VIAL INH PRN (16:00)
[2018-09-09] MEDS ORDERED: ONDANSETRON 4 MG/2 ML (SDV) Z0FRAN IVP PRN (18:00)
[2018-09-09] MEDS ORDERED: PIPERACILLIN/TAZOBACTAM (BULK) 4.5 GM in NS (IVPB) 100 ML IV NR (18:15)
[2018-09-10] VITALS (17 sets, daily range): BP systolic 92–165; BP diastolic 58–94
[2018-09-10] MEDS: NS IV 1000 ML 1,000 ML IV SCH ×3 (00:28→14:24)
[2018-09-10] MEDS: PIPERACILLIN/TAZOBACTAM (BULK) 4.5 GM in NS (IVPB) 100 ML IV SCH ×3 (00:30→16:32)
[2018-09-10] MEDS: RT-ALBUTEROL/IPRATROPIUM 3 ML (DUONEB) VIAL INH SCH ×4 (02:32→16:37)
[2018-09-10 03:50] LABS: BASOPHILS % (AUTO) 0 % (0-10); EOSINOPHILS % (AUTO) 0 % (0-10); HEMATOCRIT 35 % (40-54); HEMOGLOBIN 12.1 G/DL (13.3-17.7); LYMPHOCYTES # (AUTO) 2.2 X 10^3 (1.0-4.0); LYMPHOCYTES % (AUTO) 20 % (12-44); MEAN CORPUSCULAR HEMOGLOBIN 31 PG (25-34); MEAN CORPUSCULAR HGB CONC 35 G/DL (32-36); MEAN CORPUSCULAR VOLUME 91 FL (80-99); MEAN PLATELET VOLUME 9.7 FL (7.4-10.4); MONOCYTES # (AUTO) 0.7 X 10^3 (0.0-1.0); MONOCYTES % (AUTO) 6 % (0-12); NEUTROPHILS # (AUTO) 8.2 X 10^3 (1.8-7.8); NEUTROPHILS % (AUTO) 74 % (42-75); PLATELET COUNT 141 10^3/uL (130-400); RED CELL DISTRIBUTION WIDTH 12.7 % (10.0-14.5); WHITE BLOOD COUNT 11.2 10^3/uL (4.3-11.0)
[2018-09-10 04:10] LABS: BUN/CREATININE RATIO 8; CALCIUM 8.3 MG/DL (8.5-10.1); CARBON DIOXIDE 20 MMOL/L (21-32); CHLORIDE 111 MMOL/L (98-107); CREATININE SERUM 0.71 MG/DL (0.60-1.30); GFR ESTIMATED > 60; GLUCOSE 106 MG/DL (70-105); MAGNESIUM 1.5 MG/DL (1.8-2.4); PHOSPHORUS 2.2 MG/DL (2.3-4.7); POTASSIUM 3.6 MMOL/L (3.6-5.0); SODIUM 141 MMOL/L (135-145)
[2018-09-10 04:54] LABS: INR 1.3 (0.8-1.4); PROTHROMBIN TIME PATIENT 16.5 SEC (12.2-14.7)
[2018-09-10] MEDS: MAGNESIUM 1 GM/100 ML IVPB 100 ML IV SCH ×3 (05:14→06:22)
[2018-09-10] MEDS: POTASSIUM CL 10MEQ/50ML IVPB 50 ML IV SCH ×3 (05:14→06:22)
[2018-09-10] MEDS: KCL 20 MEQ TAB (K-DUR) PO SCH (05:14)
--- NOTE | 2018-09-10 06:06 | Pulmonary Progress Note ---
Subjective Time Seen by a Provider: 06:40 Subjective/Events-last exam Pt is doing well off vent. Sepsis Event Evaluation Height, Weight, BMI Height: 5'10.00" Weight: 163lbs. 0.0oz. 73.297787do; 22.7 BMI Method:Stated Focused Exam Lactate Level 09/09/18 03:03: Lactic Acid Level 1.75 Exam Exam Vital Signs Date Time Temp Pulse Resp B/P (MAP) Pulse Ox O2 Delivery O2 Flow Rate FiO2 09/10/18 05:00 74 20 92/63 (73) 93 Nasal Cannula 2.00 09/10/18 04:27 99.0 09/10/18 04:00 61 17 104/59 (74) 93 Nasal Cannula 2.00 09/10/18 04:00 98 Room Air 09/10/18 03:00 80 13 114/58 (76) 97 Nasal Cannula 2.00 09/10/18 02:32 98 Room Air 09/10/18 02:00 74 14 108/69 (82) 94 Nasal Cannula 2.00 09/10/18 01:00 82 17 96/62 (73) 93 Nasal Cannula 2.00 09/10/18 01:00 76 09/10/18 00:00 73 18 105/61 (76) 95 Nasal Cannula 2.00 09/10/18 00:00 98 Room Air 09/09/18 23:30 99.5 09/09/18 23:00 72 16 94/58 (70) 95 Nasal Cannula 2.00 09/09/18 22:28 95 Room Air 09/09/18 22:00 77 18 96/58 (71) 94 Nasal Cannula 2.00 09/09/18 21:00 82 16 98/62 (74) 94 Nasal Cannula 2.00 09/09/18 20:00 98 Room Air 09/09/18 20:00 82 19 111/71 (84) 87 Nasal Cannula 2.00 09/09/18 20:00 98.5 09/09/18 19:00 82 17 125/73 (90) Nasal Cannula 2.00 09/09/18 19:00 98 09/09/18 19:00 99.5 09/09/18 18:48 91 Room Air 09/09/18 18:00 89 21 112/71 (85) Nasal Cannula 2.00 09/09/18 17:00 109 30 117/59 (78) 93 Nasal Cannula 2.00 09/09/18 16:38 100.2 09/09/18 16:00 111 21 99/54 (69) 94 Nasal Cannula 2.00 09/09/18 16:00 94 Room Air 09/09/18 15:00 102.0 09/09/18 15:00 101 21 125/77 (93) 98 Nasal Cannula 2.00 09/09/18 14:41 94 Nasal Cannula 2.00 09/09/18 14:12 98.6 09/09/18 14:00 109 25 128/86 (100) 92 Nasal Cannula 2.00 09/09/18 13:42 100.1 09/09/18 13:28 100.1 09/09/18 13:21 107 09/09/18 13:05 Nasal Cannula 2.00 09/09/18 13:05 94 Nasal Cannula 2.00 09/09/18 13:00 97 20 104/89 (94) 93 Mechanical Ventilator 25.00 09/09/18 12:00 100.2 92 14 122/71 (88) 95 Mechanical Ventilator 25.00 09/09/18 11:48 97 Mechanical Ventilator 25.00 09/09/18 11:00 99.6 90 15 126/71 (89) 95 Mechanical Ventilator 25.00 09/09/18 10:33 77 16 98 25 09/09/18 10:00 98.9 78 14 110/62 (78) 97 Mechanical Ventilator 25.00 09/09/18 09:00 98.6 80 13 110/73 (85) 95 Mechanical Ventilator 25.00 09/09/18 08:59 77 14 95 25 09/09/18 08:00 97 Mechanical Ventilator 25.00 09/09/18 08:00 98.4 76 13 105/66 (79) 97 Mechanical Ventilator 25.00 09/09/18 07:29 98.4 80 14 107/64 (78) 97 Mechanical Ventilator 25.00 09/09/18 07:02 80 09/09/18 07:00 98.8 80 14 105/62 (76) 96 Mechanical Ventilator 25.00 09/09/18 06:45 98.8 74 13 103/64 (77) 97 Mechanical Ventilator 25.00 09/09/18 06:30 98.6 74 14 107/66 (80) 98 Mechanical Ventilator 25.00 09/09/18 06:15 98.6 73 13 102/64 (77) 98 Mechanical Ventilator 25.00 09/09/18 06:03 75 14 98 25 I & O 09/10/18 07:00 Intake Total 2012 ml Output Total 2410 ml Balance -398 ml Height & Weight Height: 5'10.00" Weight: 163lbs. 0.0oz. 73.965240xc; 22.7 BMI Method:Stated General Appearance: No Apparent Distress, Thin HEENT: PERRL/EOMI, Normal ENT Inspection, Pharynx Normal, Other (minor abrasion on the top of the scalp) Neck: Normal Inspection Respiratory: Lungs Clear, Normal Breath Sounds, No Accessory Muscle Use, No Respiratory Distress, Decreased Breath Sounds Cardiovascular: Regular Rate, Rhythm, No Edema Capillary Refill: Less Than 3 Seconds Peripheral Pulses: 2+ Dorsalis Pedis (R), 2+ Left Dors-Pedis (L), 2+ Radial Pulses (R), 2+ Radial Pulses (L) Gastrointestinal: normal bowel sounds, non tender, soft Extremity: Normal Inspection, No Pedal Edema Neurologic/Psychiatric: Other (sedated) Skin: Normal Color, Diaphoresis Results Lab Laboratory Tests 09/08/18 22:28 09/09/18 03:03 09/10/18 03:25 Assessment/Plan Assessment/Plan Acute respiratory failure - resolved -Pt is now doing well off vent. -No complications noted. Multisubstance OD narcotics and benzo's -Mucomyst protocol Metabolic acidosis - mild -IVF -Monitor Mild hypotension - while sleeping -keep IVF going for now Bradycardia - asymptomatic -monitor Hypophos/hypokalemia/hypomagnesium -replace all hyperbilirubinemia - probably secondary to OD -monitor Anemia -Monitor N/V - resolved Marijuana use -education DARRIN PATEL DO September 10, 2018 06:06
[2018-09-10 06:25] LABS: ALANINE AMINOTRANSFERASE 20 U/L (0-55); ALKALINE PHOSPHATASE 36 U/L (40-136); BILIRUBIN,TOTAL 1.8 MG/DL (0.1-1.0)
[2018-09-10] MEDS ORDERED: POTASSIUM PHOSPHATE INJ 30 MM in NS (IVPB) 250 ML IV ONE (06:30)
[2018-09-10] MEDS ORDERED: SODIUM PHOSPHATE INJ 30 MM in NS (IVPB) 250 ML IV ONE (06:45)
--- NOTE | 2018-09-10 06:53 | Diagnostic Imaging Report ---
Indication: Drug overdose. Portable chest 3:12 AM Heart size and pulmonary vascularity normal. Lungs are clear. There are no effusions or pneumothoraces. Impression: No acute abnormalities in the chest. Dictated by: Dictated on workstation # [id number]
--- NOTE | 2018-09-10 07:42 | NUR ---
THIS NURSE SPOKE WITH [facility]. WHEN PATIENT IS MEDICALLY CLEARED FOR DISCHARGE [facility] TO BE CALLED BACK ET THEY WILL COME SCREEN PATIENT AT THAT TIME.
--- NOTE | 2018-09-10 07:59 | NUR ---
DURING ASSESSMENT, PATIENT HAS MADE COMMENTS TO THIS NURSE "ITS ONE THING TO ATTEMPT TO COMMIT SUICIDE, ITS ANOTHER THING TO FAIL" PATIENT STATED HE HAD FAMILY MEMBERS THAT CANT BE TRUSTED ET THAT IS WHY HE WAS ATTEMPTING TO END HIS LIFE
--- NOTE | 2018-09-10 10:21 | Progress Note-Hospitalist ---
Subjective HPI/CC On Admission Date Seen by Provider: September 10, 2018 Time Seen by Provider: 09:45 CC: Overdose with VDRF HPI: This is a 38-year-old white male who is brought to the ER from paramedics after the family called due to unresponsiveness. Family was performing chest compressions at the time of arrival of the paramedics and they assessed the patient have a pulse that he was no longer able to maintain his airway so he was intubated in the field. Currently patient is stable now vent dependent and Dr. Atkinson has been consulted. No family at the bedside for other details. Subjective/Events-last exam Extubated Patient denies pain Checked meds and labs Cough noted Review of Systems General: Fatigue Focused Exam Lactate Level 09/09/18 03:03: Lactic Acid Level 1.75 Objective Exam Vital Signs Vital Signs Date Time Temp Pulse Resp B/P (MAP) Pulse Ox O2 Delivery O2 Flow Rate FiO2 09/10/18 10:33 91 Room Air 09/10/18 10:00 65 18 103/72 (82) 2.00 09/10/18 08:34 09/10/18 07:53 99.5 Capillary Refill : Less Than 3 Seconds General Appearance: No Apparent Distress, Thin, Other (sleepy) HEENT: PERRL/EOMI, Normal ENT Inspection, Pharynx Normal, Other (minor abrasion on the top of the scalp) Neck: Normal Inspection Respiratory: No Accessory Muscle Use, No Respiratory Distress, Crackles, Decreased Breath Sounds Cardiovascular: Regular Rate, Rhythm, No Edema Gastrointestinal: Soft; No Distended Extremity: Normal Inspection, No Pedal Edema Neurologic/Psychiatric: Alert, Oriented x3 Skin: Normal Color, Diaphoresis Results/Procedures Lab Laboratory Tests 09/10/18 03:25 Patient resulted labs reviewed. Assessment/Plan Assessment and Plan Assess & Plan/Chief Complaint Assessment: OD VDRF now extubated Plan: Monitor lungs closely Diagnosis/Problems Diagnosis/Problems (1) Ventilator dependence Status: Resolved Resolution Date/Time: 09/10/18 @ 10:57 (2) Respiratory failure Status: Resolved Qualifiers: Chronicity: unspecified Respiratory failure complication: unspecified whether with hypoxia or hypercapnia Qualified Codes: J96.90 - Respiratory failure, unspecified, unspecified whether with hypoxia or hypercapnia Resolution Date/Time: 09/10/18 @ 10:57 (3) Drug overdose Status: Acute Qualifiers: Encounter type: initial encounter Injury intent: undetermined intent Qualified Codes: T50.904A - Poisoning by unspecified drugs, medicaments and biological substances, undetermined, initial encounter ELAN COUGHLIN DO September 10, 2018 10:21
[2018-09-10] MEDS: CHLORHEXIDINE 0.12% SOLN 15 ML (PERIDEX) UDC PO SCH ×2 (12:07→21:05)
[2018-09-10] MEDS: PANTOPRAZOLE 40 MG (PROTONIX) VIAL IV SCH (12:07)
--- NOTE | 2018-09-10 13:00 | NUR ---
Patient transferred to [facility] per W/C accompanied by ICU staff. Patient and family notified and understand transfer. Personal belongings with patient. Report given to THIS RN BY HAT TRIMMER. TELESITTER IN ROOM -- PT VERALIZED DID NOT HAVE SUICIDIAL THOUGHT OR PLAN TO CARRY IT OUT --
--- NOTE | 2018-09-10 13:00 | NUR ---
REPORT CALLED TO CLARISSA VALENTIN ON [facility]TH MEDICAL SURGICAL UNIT. PATIENT BELONGINGS PACKED ET PATIENT TRANSFERRED TO BY [facility]. PATIENT TRANSFERRED TO ROOM 422. TELESITTER SET UP FOR PATIENT IN ROOM 422 R/T SUICIDAL IDEATION.
[2018-09-10] MEDS: IBUPROFEN 600 MG (MOTRIN) TAB PO PRN ×2 (14:37→22:48)
--- NOTE | 2018-09-10 14:51 | NUR ---
CM/SS spoke with the patient this day. Got updated information for this facesheet, updated and sent to registration for update of facesheet. Discussed with him what lead to him attempting suicide. He stated that the could not trust his fiance and that she told things he had asked her to not tell to their friends. He said that they were to be in two days and he has told her that he can not at this time. 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 So, he feels that the can not trust his fiance, parents, and also stated he could not even trust his 9yr old daughter. He reported he has not been in any MH counseling previously. He did not seem interested in inpatient counseling due to work, houses, and daughter. Discussed that the this may be the time he needs to take care of himself as his family would want him to be around. He made comments of "can't be here and be happy" and that he was disappointed he was unsuccessful with his suicide attempt, he stated "when I set a goal, I expect to achieve it". Discussed that with that felt that he would still have determination then to complete suicide, he did not answer this at this time. He was ok with me coming back at another time to visit with him. Will have [facility] evaluate when medically cleared. Did ask pastoral care to visit with the patient also.
--- NOTE | 2018-09-10 15:28 | NUR ---
I have attempted to see this pt 2 x and he has been asleep, will attempt again and also tomorrow.
--- NOTE | 2018-09-10 15:50 | NUR ---
Pastoral care visit, pt was awake, established good rapport with pt and he asked what he could share confidentially with my role as a Donor Services Technician. Pt shared much of his life journey and his christianity views after much study and reading. He shared much of his current situation and events that have caused his distress. He shared that he is aware of his trust issues. Pt explored his views on suicide and his christianity thoughts on it. We visited at length also on how he views it as Gods will that his neighbor found him. Pt also shared his planning and decision process to this attempt. Pt asked me to revisit tomorrow.
[2018-09-10] MEDS ORDERED: NICOTINE 21 MG (NICODERM) PATCH TD NR (17:45)
[2018-09-10] MEDS ORDERED: NICOTINE 21 MG (NICODERM) PATCH TD SCH (17:45)
[2018-09-11] MEDS: PIPERACILLIN/TAZOBACTAM (BULK) 4.5 GM in NS (IVPB) 100 ML IV SCH ×2 (00:15→08:39)
[2018-09-11 00:47] VITALS: BP 115/75
[2018-09-11 04:00] VITALS: BP 139/80
[2018-09-11 04:56] LABS: BASOPHILS % (AUTO) 0 % (0-10); EOSINOPHILS # (AUTO) 0.2 10^3/uL (0.0-0.3); EOSINOPHILS % (AUTO) 2 % (0-10); HEMATOCRIT 34 % (40-54); LYMPHOCYTES % (AUTO) 22 % (12-44); MEAN CORPUSCULAR HEMOGLOBIN 32 PG (25-34); MEAN CORPUSCULAR HGB CONC 35 G/DL (32-36); MEAN CORPUSCULAR VOLUME 91 FL (80-99); MEAN PLATELET VOLUME 10.2 FL (7.4-10.4); MONOCYTES # (AUTO) 0.6 X 10^3 (0.0-1.0); MONOCYTES % (AUTO) 7 % (0-12); NEUTROPHILS # (AUTO) 6.1 X 10^3 (1.8-7.8); NEUTROPHILS % (AUTO) 69 % (42-75); PLATELET COUNT 138 10^3/uL (130-400); RED CELL DISTRIBUTION WIDTH 12.4 % (10.0-14.5); WHITE BLOOD COUNT 8.8 10^3/uL (4.3-11.0)
[2018-09-11 05:15] LABS: BUN/CREATININE RATIO 6; CALCIUM 8.4 MG/DL (8.5-10.1); CARBON DIOXIDE 20 MMOL/L (21-32); CHLORIDE 111 MMOL/L (98-107); CREATININE SERUM 0.79 MG/DL (0.60-1.30); GFR ESTIMATED > 60; GLUCOSE 125 MG/DL (70-105); MAGNESIUM 1.7 MG/DL (1.8-2.4); PHOSPHORUS 1.7 MG/DL (2.3-4.7); POTASSIUM 3.3 MMOL/L (3.6-5.0); SODIUM 140 MMOL/L (135-145)
[2018-09-11] MEDS: NS IV 1000 ML 1,000 ML IV SCH ×3 (05:19→16:06)
[2018-09-11] MEDS: RT-ALBUTEROL/IPRATROPIUM 3 ML (DUONEB) VIAL INH SCH ×3 (06:21→14:45)
[2018-09-11 08:00] VITALS: BP 98/60
[2018-09-11] MEDS: PANTOPRAZOLE 40 MG (PROTONIX) VIAL IV SCH (08:39)
[2018-09-11] MEDS: CHLORHEXIDINE 0.12% SOLN 15 ML (PERIDEX) UDC PO SCH (08:39)
[2018-09-11] MEDS ORDERED: NICOTINE PATCH REMOVAL TP SCH (08:59)
[2018-09-11] MEDS ORDERED: NICOTINE 21 MG (NICODERM) PATCH TD SCH (09:00)
--- NOTE | 2018-09-11 09:27 | NUR ---
CM/SS [facility] called and will be out to assess this day.
--- NOTE | 2018-09-11 09:47 | NUR ---
NOTE THAT PT'S STEP OTHER HAS CALLED SEVERAL TIMES ABOUT PT -- SHE VOICED THAT PT TOLD HER HE WOULD LEAVE THE HOSPITAL AND WALK HOME -- AND HE HAS VERBALIZED TO THE THAT HE IS SORRY HE DID NOT SUCCEED IN KILLING HM SELF -- NOTE THAT PT HAS VERBALIZED THIS TO STAFF HERE -- ALSO; PER STEP MOTHER PT HAS VOICED TO HIS FATHER AND OTHER FAMILY THAT HE WILL KILL HIMSELF - NOTE THAT THIS RN HAS TALKED TO HIM AND HE VOICED HE DID NOT HAVE A PLAN AND THAT HE WOULD NOT DO ANY HARM TO HM SELF WHILE HERE IN HOSPITAL
--- NOTE | 2018-09-11 10:14 | Progress Note-Hospitalist ---
Subjective HPI/CC On Admission Date Seen by Provider: September 11, 2018 Time Seen by Provider: 09:45 CC: Overdose with VDRF HPI: This is a 38-year-old white male who is brought to the ER from paramedics after the family called due to unresponsiveness. Family was performing chest compressions at the time of arrival of the paramedics and they assessed the patient have a pulse that he was no longer able to maintain his airway so he was intubated in the field. Currently patient is stable now vent dependent and Dr. Atkinson has been consulted. No family at the bedside for other details. Subjective/Events-last exam Patient doing much better Had some blood in phlegm today from endotracheal tube Mental health professional will be here today Will try to discharge once mentally stable Review of Systems General: Fatigue Pulmonary: Cough Focused Exam Lactate Level 09/09/18 03:03: Lactic Acid Level 1.75 Objective Exam Vital Signs Vital Signs Date Time Temp Pulse Resp B/P (MAP) Pulse Ox O2 Delivery O2 Flow Rate FiO2 09/11/18 09:00 Room Air 09/11/18 08:00 99.8 71 18 98/60 (73) 96 09/10/18 14:05 2.00 09/10/18 08:34 Capillary Refill : Less Than 3 Seconds General Appearance: No Apparent Distress, WD/WN, Chronically ill, Thin, Other ( sleepy) HEENT: PERRL/EOMI, Normal ENT Inspection, Pharynx Normal, Other (minor abrasion on the top of the scalp) Neck: Normal Inspection Respiratory: No Accessory Muscle Use, No Respiratory Distress, Crackles, Decreased Breath Sounds Cardiovascular: Regular Rate, Rhythm, No Edema Gastrointestinal: Soft; No Distended Extremity: Normal Inspection, No Pedal Edema Neurologic/Psychiatric: Alert, Oriented x3, Depressed Affect Skin: Normal Color, Diaphoresis Results/Procedures Lab Laboratory Tests 09/11/18 04:20 Patient resulted labs reviewed. Assessment/Plan Assessment and Plan Assess & Plan/Chief Complaint Assessment: OD VDRF now extubated Severe depression Plan: Monitor lungs closely Suicide attempt evaluation from mental health professional Diagnosis/Problems Diagnosis/Problems (1) Ventilator dependence Status: Resolved Resolution Date/Time: 09/10/18 @ 10:57 (2) Respiratory failure Status: Resolved Qualifiers: Chronicity: unspecified Respiratory failure complication: unspecified whether with hypoxia or hypercapnia Qualified Codes: J96.90 - Respiratory failure, unspecified, unspecified whether with hypoxia or hypercapnia Resolution Date/Time: 09/10/18 @ 10:57 (3) Drug overdose Status: Acute Qualifiers: Encounter type: initial encounter Injury intent: undetermined intent Qualified Codes: T50.904A - Poisoning by unspecified drugs, medicaments and biological substances, undetermined, initial encounter ELAN COUGHLIN DO September 11, 2018 10:14
[2018-09-11 12:09] VITALS: BP 128/66
--- NOTE | 2018-09-11 13:06 | NUR ---
CM/SS SAVE Line out and assessed the patient. Patient is now agreeing to go to an inpatient facility. [facility]erral sent to [facility] and [facility].
--- NOTE | 2018-09-11 15:10 | NUR ---
Pastoral care visit.
[2018-09-11 15:55] VITALS: BP 122/64
--- NOTE | 2018-09-11 16:32 | Discharge Summary-Hospitalist ---
Diagnosis/Chief Complaint Date of Admission Sep 08, 2018 at 22:59 Date of Discharge Discharge Date: September 11, 2018 Admission Diagnosis Assessment: Overdose Respiratory failure VDRF Plan: Maintain vent Appreciate Dr Atkinson Discharge Diagnosis (1) Ventilator dependence Status: Resolved (2) Respiratory failure Status: Resolved (3) Drug overdose Status: Acute (4) Suicide attempt Status: Acute Discharge Summary Discharge Physical Exam Allergies: Coded Allergies: No Known Drug Allergies (Unverified , 09/09/18) Vitals & I&Os Vital Signs Date Time Temp Pulse Resp B/P (MAP) Pulse Ox O2 Delivery O2 Flow Rate FiO2 09/11/18 15:55 98.9 71 18 122/64 (83) 97 Room Air 09/10/18 14:05 2.00 09/10/18 08:34 General Appearance: No Apparent Distress, WD/WN Respiratory: Chest Non Tender, Lungs Clear, Normal Breath Sounds, No Accessory Muscle Use, No Respiratory Distress Cardiovascular: Regular Rate, Rhythm, No Edema, No Gallop, No JVD, No Murmur, Normal Peripheral Pulses Neurologic/Psychiatric: Alert, Oriented x3, No Motor/Sensory Deficits, Depressed Affect Hospital Course Was the Problem List Reviewed?: Yes Hospital course: Patient had an uncomplicated hospital course after he was admitted and intubated due to overdose from a suicide attempt. No decompensation occurred during intubation and he was easily extubated under Dr. Atkinson's expertise. Alcohol withdrawal and drug withdrawal protocols were maintained. He was still suicidal so he voluntarily agreed for inpatient hospitalization or suicide attempt he was transferred in stable condition to [facility] psychiatric facility. Labs (last 24 hrs) Laboratory Tests 09/11/18 04:20: White Blood Count 8.8, Red Blood Count 3.79L, Hemoglobin 12.0L, Hematocrit 34L, Mean Corpuscular Volume 91, Mean Corpuscular Hemoglobin 32, Mean Corpuscular Hemoglobin Concent 35, Red Cell Distribution Width 12.4, Platelet Count 138, Mean Platelet Volume 10.2, Neutrophils (%) (Auto) 69, Lymphocytes (%) (Auto) 22 , Monocytes (%) (Auto) 7, Eosinophils (%) (Auto) 2, Basophils (%) (Auto) 0, Neutrophils # (Auto) 6.1, Lymphocytes # (Auto) 2.0, Monocytes # (Auto) 0.6, Eosinophils # (Auto) 0.2, Basophils # (Auto) 0.0, Sodium Level 140, Potassium Level 3.3L, Chloride Level 111H, Carbon Dioxide Level 20L, Anion Gap 9, Blood Urea Nitrogen 5L, Creatinine 0.79, Estimat Glomerular Filtration Rate > 60, BUN/ Creatinine Ratio 6, Glucose Level 125H, Calcium Level 8.4L, Phosphorus Level 1.7L, Magnesium Level 1.7L Microbiology 09/09/18 Gram Stain - Final, Complete 09/09/18 Sputum Culture - Final, Complete Usual upper respiratory makenzie Patient resulted labs reviewed. Discussion & Recommendations Discharge Planning: <30 minutes discharge planning Discharge Home Medications: Active Scripts Active No Active Prescriptions or Reported Medications Instructions to patient/family Please see electronic discharge instructions given to patient. Problem Qualifiers (1) Respiratory failure: Chronicity: unspecified Respiratory failure complication: unspecified whether with hypoxia or hypercapnia Qualified Codes: J96.90 - Respiratory failure, unspecified, unspecified whether with hypoxia or hypercapnia (2) Drug overdose: Encounter type: initial encounter Injury intent: undetermined intent Qualified Codes: T50.904A - Poisoning by unspecified drugs, medicaments and biological substances, undetermined, initial encounter ELAN COUGHLIN DO September 11, 2018 16:32
--- NOTE | 2018-09-11 16:51 | NUR ---
CM/SS patient is accepted for placement at [facility]. RN to RN number given to Stephen. Dr. Marques going to put in the discharge information. Monik Perezl will transport this day at 1800. Patient updated and he was allowed to call his father from this worker's phone so that he could update him.
[2018-09-11 17:17] VITALS: BP 122/64
[2018-09-12] MEDS ORDERED: PANTOPRAZOLE 40 MG (PROTONIX) TAB PO SCH (09:00)
== END 2018-09-11 17:25 | DRG 917 ==
LOC: ER FS 22:23 → EDBD 22:59 → ICU 22:59 → OBSVTOIN 22:59 → INTOOBSV 09-09 08:15 → OBSVTOIN 09-09 08:15 → 4TH 09-10 13:00
PROVIDERS: ADMIT Internal Medicine; ATTEND Internal Medicine
PROC: 0BH17EZ Insertion of Endotracheal Airway into Trachea, Via Natural or Artificial Opening (ICD-10-PCS; principal; 2018-09-09)
PROC: 5A1935Z Respiratory Ventilation, Less than 24 Consecutive Hours (ICD-10-PCS; 2018-09-09)
DX: T42.4X2A Poisoning by benzodiazepines, intentional self-harm, initial encounter (principal); T40.2X2A Poisoning by other opioids, intentional self-harm, initial encounter; T51.0X2A Toxic effect of ethanol, intentional self-harm, initial encounter; J96.00 Acute respiratory failure, unspecified whether with hypoxia or hypercapnia; E87.2 Acidosis; R17 Unspecified jaundice; F32.9 Major depressive disorder, single episode, unspecified; R53.83 Other fatigue; R40.0 Somnolence; R47.81 Slurred speech; I95.9 Hypotension, unspecified; R00.1 Bradycardia, unspecified; E83.39 Other disorders of phosphorus metabolism; E87.6 Hypokalemia; E83.42 Hypomagnesemia; D64.9 Anemia, unspecified
CPT/HCPCS: 36415; 36600; 51702; 70450; 71045; 72125; 80048; 80053; 80306; 80320; 80329; 82805; 82962; 83605; 83735; 84100; 84478; 85007; 85025; 85027; 85610; 87070; 87081; 87205; 93005; 94002; 94640; 94664; 94799